=== PATIENT | female | born 1980 | race Caucasian/White ===

== ENCOUNTER 2017-10-25 11:24 | Emergency (ER) | payer MEDICARE ==
[~2017-10-25] VITALS: Ht 170.2 cm; Wt 91.7 kg
[2017-10-25] MEDS ORDERED: HYDROmorphone 1 MG/ML, 1ML IVPush PRN (12:00)
[2017-10-25] MEDS ORDERED: ONDANSETRON 2MG/ML, 2ML IVPush ONE (12:00)
[2017-10-25] MEDS ORDERED: SODIUM CHLORIDE FLUSH 10ML SYR IVF ONE (12:00)
[2017-10-25 12:23] LABS: BASOPHILS # (AUTO) 0.06 x10^3/uL (0-0.1); BASOPHILS % (AUTO) 0 % (0-1); EOSINOPHILS # (AUTO) 0.09 x10^3/uL (0-0.4); EOSINOPHILS % (AUTO) 1 % (1-7); LYMPHOCYTES # (AUTO) 2.92 x10^3/uL (1-3.4); LYMPHOCYTES % (AUTO) 17 % (22-44); MD NO; MEAN CORPUSCULAR HGB CONC 33.8 g/dL (32.4-35.8); MEAN CORPUSCULAR VOLUME 94.8 fL (80-100); MEAN PLATELET VOLUME 8.3 fL (7.4-10.4); MONOCYTES # (AUTO) 1.11 x10^3/uL (0.2-0.8); MONOCYTES % (AUTO) 7 % (2-9); NEUTROPHILS # (AUTO) 12.88 x10^3/uL (1.8-6.8); NEUTROPHILS % (AUTO) 76 % (42-75); PLATELET COUNT 311 x10^3/uL (130-400); RED BLOOD COUNT 4.75 x10^6/uL (3.82-5.3); RED CELL DISTRIBUTION WIDTH 13.8 % (9.6-15.2)
[2017-10-25] MEDS ORDERED: METH5TAB2 PO (12:29)
[2017-10-25] MEDS ORDERED: ARIP10TA33 PO (12:31)
[2017-10-25] MEDS ORDERED: VENL150C PO (12:31)
[2017-10-25] MEDS ORDERED: HYDR-879 PO (12:33)
[2017-10-25 12:35] LABS: ALBUMIN 3.9 g/dL (3.4-5.0); ANION GAP 9 mmol/L (5-15); CALCIUM 8.9 mg/dL (8.5-10.1); CHLORIDE 111 mmol/L (98-107); CREATININE 0.69 mg/dL (0.55-1.02)
[2017-10-25] MEDS ORDERED: HYDROmorphone 1 MG/ML, 1ML ONE (12:40)
[2017-10-25] MEDS ORDERED: ONDANSETRON 2MG/ML, 2ML ONE (12:40)
[2017-10-25] MEDS ORDERED: DEXAMETHASONE 4 MG TABLET ONE (13:07)
[2017-10-25] MEDS ORDERED: ONDANSETRON ODT 4 MG ONE (13:07)
[2017-10-25] MEDS ORDERED: ONDANSETRON ODT 4 MG PO ONE (13:30)
[2017-10-25] MEDS ORDERED: DEXAMETHASONE 4 MG TABLET PO ONE (13:30)
[2017-10-25] MEDS ORDERED: HYDROmorphone 1 MG/ML, 1ML IM ONE (13:30)
[2017-10-25 14:10] VITALS: BP 140/94
== END 2017-10-25 13:03 | disposition home or self-care (01) ==
LOC: ED 12:57
DX: G43.009 Migraine without aura, not intractable, without status migrainosus (principal); K08.89 Other specified disorders of teeth and supporting structures
CPT/HCPCS: 36415; 70450; 80048; 82040; 85025; 96372; 99285; J1170; Q0162

== ENCOUNTER 2018-06-09 17:20 | Emergency (ER) | payer MEDICARE ==
[~2018-06-09] VITALS: Ht 170.2 cm; Wt 86.8 kg
[~2018-06-09 17:20] MED LIST: ARIP10TA33 PO; HYDR-3622 PO; METH5TAB2 PO; VENL150C PO
[2018-06-09 17:33] VITALS: BP 134/84
== END 2018-06-09 18:58 | disposition home or self-care (01) ==
LOC: ED 18:10
DX: K08.89 Other specified disorders of teeth and supporting structures (principal)
CPT/HCPCS: 99283

== ENCOUNTER 2020-03-16 20:09 | Emergency (ER) | payer MEDICARE ==
[~2020-03-16] VITALS: Ht 170.2 cm; Wt 94.8 kg
[~2020-03-16 20:09] MED LIST changes: +HYDR-3246 PO
[2020-03-16 20:35] VITALS: BP 148/83
--- NOTE | 2020-03-16 20:41 | NUR ---
INGREDIENT HANDLER: VISUAL ACUITY EXAM COMPLETED IN TRIAGE.
--- NOTE | 2020-03-16 21:01 | NUR ---
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
[2020-03-16] MEDS ORDERED: FLUORESCEIN OPHTHALMIC 1 MG STRIP ONE (21:10)
[2020-03-16] MEDS ORDERED: PROPARACAINE OPHTH 0.5%, 15ML ONE (21:10)
== END 2020-03-16 21:56 | disposition home or self-care (01) ==
LOC: ED 21:15
DX: H01.002 Unspecified blepharitis right lower eyelid (principal); H00.012 Hordeolum externum right lower eyelid; G89.29 Other chronic pain; G43.909 Migraine, unspecified, not intractable, without status migrainosus; F17.210 Nicotine dependence, cigarettes, uncomplicated
CPT/HCPCS: 99283; 99406

== ENCOUNTER 2020-04-05 00:02 | Emergency (ER) | payer MEDICARE ==
[~2020-04-05] VITALS: Ht 170.2 cm; Wt 93.6 kg
[2020-04-05] MEDS ORDERED: METOCLOPRAMIDE 5 MG/ML, 2ML IVPush ONE (01:00)
[2020-04-05] MEDS ORDERED: DEXAMETHASONE 4 MG/ML, 1ML IVPush ONE (01:00)
[2020-04-05] MEDS ORDERED: SODIUM CHLORIDE FLUSH 10ML SYR IVF ONE (01:00)
[2020-04-05] MEDS ORDERED: DIPHENHYDRAMINE 50 MG/ML, 1ML IVPush ONE (01:00)
[2020-04-05] MEDS ORDERED: SODIUM CHLORIDE 0.9% 1,000ML IVBOLUS ONE (01:00)
[2020-04-05] MEDS ORDERED: METOCLOPRAMIDE 5 MG/ML, 2ML ONE (01:04)
[2020-04-05] MEDS ORDERED: DEXAMETHASONE 4 MG/ML, 5ML ONE (01:04)
[2020-04-05] MEDS ORDERED: DIPHENHYDRAMINE 50 MG/ML, 1ML ONE (01:04)
[2020-04-05] MEDS ORDERED: HYDROmorphone 1 MG/ML, 1ML INJ ONE ×2 (01:04→02:57)
[2020-04-05] MEDS: HYDROmorphone 1 MG/ML, 1ML INJ IVPush PRN ×2 (01:06→02:58)
--- NOTE | 2020-04-05 01:47 | NUR ---
IV STARTED IN LEFT UPPER ARM. PT GIVEN FLUIDS AND MEDICATED PER OCT. RESTING IN BED. STATES THAT SHE IS STILL NAUSEOUS AND CONTINUES TO HAVE A HEADACHE. ERP NOTIFIED. PT DENIES ANY FURTHER NEEDS OR CONCERNS, CALL LIGHT IN REACH.
--- NOTE | 2020-04-05 01:51 | NUR ---
REPORT TO NIDHI MENDOZA. PT AWARE OF PLAN OF CARE AND IMPENDING IMAGING. DENIES ANY FURTHER NEEDS AT THIS TIME, CALL LIGHT IN REACH.
--- NOTE | 2020-04-05 01:51 | NUR ---
RECEIVED REPORT FROM NIDHI ARENAS TO ASSUME CARE OF PT. AT THIS TIME.
[2020-04-05] MEDS ORDERED: ONDANSETRON 2MG/ML, 2ML ONE (01:55)
--- NOTE | 2020-04-05 01:58 | NUR ---
PT. MEDICATED PER MAR FOR REPORTS OF CONTINUED NAUSEA. PT. TO CT VIA [facility] AT THIS TIME.
[2020-04-05] MEDS ORDERED: ONDANSETRON 2MG/ML, 2ML IVPush ONE (02:00)
--- NOTE | 2020-04-05 02:53 | NUR ---
PT. CONTINUES TO C/O 02/24 GRIMM AND IS REQUESTING MORE PAIN MEDS; PER DR. MELO WILL GIVE 2ND DOSE OF DILUADID.
--- NOTE | 2020-04-05 04:03 | NUR ---
PT. REPORTS PAIN IS "DOWN TO A 5 AND THAT IS PRETTY MUCH WHERE IT ALWAYS IS SO I FEEL MUCH BETTER NOW" AT TIME OF D/C.
[2020-04-05 04:04] VITALS: BP 107/61
== END 2020-04-10 20:28 | disposition home or self-care (01) ==
LOC: ED 00:28
DX: G43.009 Migraine without aura, not intractable, without status migrainosus (principal); R11.2 Nausea with vomiting, unspecified; R94.31 Abnormal electrocardiogram [ECG] [EKG]; F17.210 Nicotine dependence, cigarettes, uncomplicated
CPT/HCPCS: 70450; 93005; 96361; 96374; 96375; 96376; 99284; 99406; J1100; J1170; J1200; J2405; J2765; J7030

== ENCOUNTER 2020-07-09 21:55 | Emergency (ER) | payer MEDICARE ==
[~2020-07-09] VITALS: Ht 170.2 cm; Wt 94.2 kg
[2020-07-09 21:56] VITALS: BP 122/79
--- NOTE | 2020-07-09 23:17 | NUR ---
LEFT SIDE ABCESS, PT STATES HX OF SAME PREVIOUSLY. NADN. ERP TO ROOM TO ASSESS. PT UPDATED ON POC.
== END 2020-07-09 23:36 | disposition home or self-care (01) ==
LOC: ED 22:57
DX: K04.7 Periapical abscess without sinus (principal); K02.9 Dental caries, unspecified; K08.89 Other specified disorders of teeth and supporting structures
CPT/HCPCS: 41800; 99283; 99284

== ENCOUNTER 2021-01-04 09:11 | Emergency (ER) | payer MEDICARE ==
[~2021-01-04] VITALS: Ht 170.2 cm; Wt 93.5 kg
[~2021-01-04 09:11] MED LIST changes: -HYDR-3246 PO; +HYDR-3248 PO
[2021-01-04] MEDS ORDERED: LORazepam 2 MG/ML, 1ML IVPush ONE (10:00)
--- NOTE | 2021-01-04 10:00 | NUR ---
IV STARTED, LABS DRAWN WITH START. PT STATES ANXIOUS, "FEEL LIKE I'M GETTING A PANIC ATTACK". ATIVAN ORDERED/GIVEN PER ERP ORDER. CALL LIGHT WITHIN REACH. BP CUFF, PULSE OX IN PLACE, WARM BLANKET PROVIDED.
[2021-01-04] MEDS ORDERED: LORazepam 2 MG/ML, 1ML ONE (10:04)
--- NOTE | 2021-01-04 11:16 | NUR ---
PT STATES ATIVAN HAS NOT HELPED WITH ANXIETY OR GRIMM. C/O ALSO OF RESTLESS LEGS. PT FOR RECHECK.
[2021-01-04] MEDS ORDERED: KETAMINE 10 MG/ML, 20ML ONE (12:08)
[2021-01-04] MEDS ORDERED: KETAMINE 10 MG/ML, 20ML IV STA (12:09)
--- NOTE | 2021-01-04 12:50 | NUR ---
PT STATES LITTLE RELIEF OF GRIMM, NOW RATED 6/10. PT STILL C/O RESTLESSNESS, AGITATION, ANXIETY. THIS REPORTED TO ERP, ERP TO [facility].
[2021-01-04 13:04] VITALS: BP 121/61
== END 2021-01-04 13:44 | disposition home or self-care (01) ==
LOC: ED 10:24
DX: G44.209 Tension-type headache, unspecified, not intractable (principal); F11.13 Opioid abuse with withdrawal; G89.29 Other chronic pain; G43.909 Migraine, unspecified, not intractable, without status migrainosus
CPT/HCPCS: 36415; 84702; 96374; 96375; 99284; J2060

== ENCOUNTER 2021-01-10 16:17 | Outpatient (CLI) | payer MEDICARE | END 2021-01-10 23:59 | disposition home or self-care (01) | LOC: RAD 16:17 → LAB 23:59 | PROVIDERS: ATTEND Nurse Practitioner | DX: E34.9 Endocrine disorder, unspecified (principal) | CPT/HCPCS: 36415; 84702 ==

== ENCOUNTER 2021-01-24 16:45 | Emergency (ER) | payer MEDICARE ==
[~2021-01-24] VITALS: Ht 170.2 cm; Wt 94.4 kg
--- NOTE | 2021-01-24 17:46 | NUR ---
PT AMBULATED TO ROOM FROM [facility]. PT STATED THAT SHE IS ABOUT 6 WEEKS AND HAS HAD SOME SPOTTING OVER THE PAST 3 DAYS. PT STATED THAT SHE HAS NOT SOAKED THROUGH ANY PADS AND DENIES ANY CRAMPING. PT STATED THAT SHE HAS HAD 8 MISCARRIAGES IN THE PAST.
[2021-01-24 18:41] LABS: BASOPHILS % (AUTO) 1 % (0-1); EOSINOPHILS % (AUTO) 0 % (1-7); LYMPHOCYTES % (AUTO) 32 % (22-44); MEAN CORPUSCULAR HGB CONC 33.9 g/dL (32.4-35.8); MEAN PLATELET VOLUME 8.1 fL (7.4-10.4); MONOCYTES % (AUTO) 6 % (2-9); NEUTROPHILS % (AUTO) 61 % (42-75); PLATELET COUNT 241 x10^3/uL (130-400); RED BLOOD COUNT 4.52 x10^6/uL (3.82-5.3); RED CELL DISTRIBUTION WIDTH 13.4 % (9.6-15.2)
--- NOTE | 2021-01-24 18:45 | NUR ---
US AT BEDSIDE
[2021-01-24 18:50] LABS: ALBUMIN 3.5 g/dL (3.4-5.0); ANION GAP 6 mmol/L (5-15); CALCIUM 8.6 mg/dL (8.5-10.1); CHLORIDE 105 mmol/L (98-107); CREATININE 0.59 mg/dL (0.55-1.02)
[2021-01-24 19:00] VITALS: BP 125/72
--- NOTE | 2021-01-24 19:01 | NUR ---
RN AT BEDSIDE TO TWIST TESTER FOR TRANSVAGINAL US.
--- NOTE | 2021-01-24 19:54 | NUR ---
PT RESTING COMFORTABLY IN [facility]. CALL LIGHT WITHIN REACH.
--- NOTE | 2021-01-24 20:49 | NUR ---
Anthony figueroa in ED - 01/24/21 at 2049 by AMALIA DISCHARGE INSTRUCTIONS REVIEWED WITH PT. ALL QUESTIONS ANSWERED AT THIS TIME. CATHERTER CARE REVIEWED WITH PT.
--- NOTE | 2021-01-24 20:50 | NUR ---
DISCHARGE INSTRUCTION REVIEWED AT THIS TIME. ALL QUESTIONS ANSWERED AT THIS TIME.
== END 2021-01-24 20:52 | disposition home or self-care (01) ==
LOC: ED 18:00
DX: O20.0 Threatened abortion (principal); G89.29 Other chronic pain; F17.200 Nicotine dependence, unspecified, uncomplicated; Z90.710 Acquired absence of both cervix and uterus; Z3A.08 8 weeks gestation of pregnancy
CPT/HCPCS: 36415; 76801; 80048; 82040; 84702; 85025; 86901; 99284

== ENCOUNTER → 2021-02-02 | Outpatient (CLI) | payer MEDICARE | END | disposition home or self-care (01) | LOC: LAB 08:09 | PROVIDERS: ATTEND Obstetrics & Gynecology | DX: Z32.01 Encounter for pregnancy test, result positive (principal) | CPT/HCPCS: 36415; 84702 ==